=== PATIENT | female | born 1985 | race Two or more races ===

== ENCOUNTER 2019-02-17 08:42 | Emergency (ER) | payer OTHER ==
[~2019-02-17] VITALS: Ht 167.6 cm; Wt 49.9 kg
[2019-02-17] MEDS ORDERED: NKM (08:49)
--- NOTE | 2019-02-17 08:50 | Emergency Room Report ---
History of Present Illness General Chief Complaint: syncope Source: Patient Present Illness HPI Disclaimer: Please note that this report is being documented using DRAGON technology. This can lead to erroneous entry secondary to incorrect interpretation by the dictating instrument. HPI: 34-year-old otherwise healthy female presents for evaluation after an episode of syncope. 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 She stepped outside and felt lightheaded. She sat down in a chair and asked for a glass of water and then had a witnessed brief syncopal episode where she slumped over but did not fall out of the chair. There is no head injury. She regained consciousness immediately. She was feeling fatigued and lightheaded but denied any headache, visual changes, nausea, vomiting, chest pain, shortness of breath. She had breakfast this morning and has no history of diabetes or hypoglycemia. Takes no medications, denies , otherwise healthy. PMH: Denies PSH: Denies Allergies: Denies Social Hx: Denies drug, alcohol or tobacco use Allergies: Coded Allergies: No Known Allergies (Unverified , 02/17/19) Review of Systems All Other Systems: negative except mentioned in HPI Physical Exam General: Awake and alert, no acute distress HEENT: NC/AT. EOMI. PERRLA. No nystagmus. Moist mucous membranes Cardiovascular: RRR. S1 and S2 normal. No murmur appreciated Resp: Normal work of breathing. No cough, wheezing or crackles appreciated Abdomen: Abdomen is soft, nondistended. Nontender Skin: Intact. No abrasions, laceration or rash over the exposed skin MSK: Normal tone and bulk. Moving all extremities. No obvious deformity. Neuro: Awake and alert. Mentating appropriately. Back/Spine: No midline tenderness in the cervical spine. 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 She states her mass was too tight feeling pressure over her face and some difficulty breathing causing her to syncopized. No prior episodes of syncope and no prodromal symptoms. Will check an EKG, hCG. Fingerstick was 106. Will rehydrate orally and provide some food. She is otherwise well-appearing and states she is returned to her baseline. No complaints at this time. Reevaluation Time: 09:05 Reevaluation Impression Patient is refusing EKG, screen and wants to leave the emergency department at this time. We explained that we cannot rule out a life- threatening cause of her loss of conscience today. She states she is late for a class and is electing to leave AGAINST MEDICAL ADVICE. As she was leaving the emergency department states that she has had other episodes of syncope in the past and that she has had a Holter monitor evaluation which was nondiagnostic. I strongly encouraged her to follow-up with PMD to discuss today 's emergency department visit. She left the emergency department prior to receiving her discharge paperwork. Disposition: AGAINST MEDICAL ADVICE Condition: Stable Roland Gutiérrez MD Feb 17, 2019 08:50
--- NOTE | 2019-02-17 08:51 | NUR ---
ED Nurse Note: pt arrives via gurney from OR dept. pt is a/ox4 denies pain. states she felt hot in OR observing a surgery and sat down to have water. pt denies hitting her head or trauma. denies dyspnea or cp/n/v. pt with nsr no ectopy on monitor. pt does relate that she feels shaky. pt aware to obtain urine sample and to have ecg done.
[2019-02-17 09:00] VITALS: BP 106/71
--- NOTE | 2019-02-17 09:00 | NUR ---
AMA: SEE AMA FORM.pt declines interventions ordered. states she feels fine and wants to leave. aware. pt states she has pmd for f/u. ambulates steady gait out of ed. a/ox4
== END 2019-02-17 09:00 | disposition left against medical advice (07) ==
LOC: EMR 09:00
DX: R55 Syncope and collapse (principal)
CPT/HCPCS: 99282